=== PATIENT | male | born 1990 | race Caucasian/White ===

== ENCOUNTER 2019-08-18 10:52 | Emergency (ER) | payer BC, SELFPAY ==
[2019-08-18 11:06] VITALS: BP 134/79; PULSE 92; RESP 18; TEMP 37.4; O2SAT 99
--- NOTE | 2019-08-18 11:26 | ED.MALEGU ---
HPI - Male Genitourinary General Chief complaint: Urogenital-Male Stated complaint: STD testing Time Seen by Provider: 08/18/19 11:18 Source: patient and RN notes reviewed Mode of arrival: ambulatory Limitations: no limitations History of Present Illness HPI Narrative: Patient presents today complaining of one episode of urethral discharge this morning. Reported was cloudy with a green tint. Denies dysuria, hematuria, abdominal pain, scrotal or testicular pain or swelling. Reports he did have unprotected intercourse approximately 1 week ago. Complaint: penile discharge Related Data Allergies Allergy/AdvReac Type Severity Reaction Status Date / Time No Known Allergies Allergy Verified 08/18/19 11:12 Review of Systems Review of Systems: Narrative: CONSTITUTIONAL: Denies body aches, fever, chills, or sweats. EYES: Denies visual changes, redness, or discharge. ENT: Denies rhinorrhea, congestion, sore throat, or otalgia. CARDIOVASCULAR: Denies chest pain, palpitations, or edema. RESPIRATORY: Denies cough or dyspnea. GASTROINTESTINAL: Denies abdominal pain, nausea, vomiting, or diarrhea. GENITOURINARY: Denies dysuria or hematuria.+ Penile discharge SKIN: Denies rash, itching, or wounds. MUSCULOSKELETAL: Denies back pain, joint pain, or myalgia. NEUROLOGIC: Denies headache, numbness, tingling, or weakness. PSYCH: Denies depression or anxiety. PMFSH Comments At time of signature, I have reviewed and agree with nursing past medical, surgical, social and family history unless otherwise noted. Please see nursing chart for further information. There is no relevant family history pertinent to the presenting complaint Exam Narrative: Exam Narrative: GENERAL: Well-appearing, well-nourished, and in no acute distress. HEAD: Normocephalic, atraumatic. EYES: EOMI. No redness or drainage. Conjunctivae normal. ENT: Mucous membranes pink and moist. NECK: Normal AROM. CHEST: No respiratory distress. EXTREMITIES: Normal range of motion. No edema. SKIN: Warm, dry, no rash. NEURO: No focal deficits. Alert and oriented x3. Gait steady. PSYCH: Normal affect. No signs of depression or anxiety. Course Vital Signs Vital signs: Vital Signs Temperature 99.3 F 08/18/19 11:06 Pulse Rate 92 08/18/19 11:06 Respiratory Rate 18 08/18/19 11:06 Blood Pressure 134/79 08/18/19 11:06 Pulse Oximetry 99 08/18/19 11:06 Temperature 99.3 F 08/18/19 11:06 Pulse Rate 92 08/18/19 11:06 Respiratory Rate 18 08/18/19 11:06 Blood Pressure 134/79 08/18/19 11:06 Pulse Oximetry 99 08/18/19 11:06 Reviewed. Pt has been instructed to follow up with his PCP regarding his elevated blood pressure today. MDM - Male Genitourinary Differential Diagnosis Differential diagnosis: Likely urinary tract infection and other (Gonorrhea, chlamydia, trichomonas) Lab Data Attestation: I reviewed the patient's lab results. Labs: Urine Glucose Negative Reference Range: Negative Urine Bilirubin Negative Reference Range: Negative Urine Ketone Negative Reference Range: Negative Urine Specific [place] 1.020 Reference Range:1.001-1.035 Urine Blood Negative Reference Range: Negative * * Urine pH 7.5 Reference Range: 5.0-9.0 Urine Protein Negative Reference Range: Negative Urine Urobilinogen 0.2 Reference Range: 0.2-1.0 Urine Nitrate Negative Reference Range: Negative Urine Leukocyte Negative Reference Range: Negative Urine Color Yellow Reference Range: Yellow Urine Characteristics Clear Critical Care Time Critical Care Time Critical Care Time: No Discharge Plan Discharge C
[2019-08-18] MEDS: AZITHROMYCIN 250 MG TABLET 1000 MG PO (11:53)
[2019-08-18] MEDS: cefTRIAXone 250 MG VIAL IM (11:53)
[2019-08-18] MEDS: LIDOCAINE HCL 1% LOCAL INJ 20 ML VIAL IM (11:54)
== END 2019-08-18 12:08 | disposition home or self-care (01) ==
PROVIDERS: Emergency Provider Nurse Practitioner
DX: R36.9 Urethral discharge, unspecified (principal)
CPT/HCPCS: 81003; 87491; 87591; 87661; 96372; 99203; A9270; G0463; J0696

== ENCOUNTER 2019-12-22 14:40 | Emergency (ER) | payer BC, SELFPAY ==
[2019-12-22 15:00] VITALS: BP 119/83; PULSE 99; RESP 16; TEMP 36.6; O2SAT 100
--- NOTE | 2019-12-22 15:35 | ED.GENADULT ---
HPI - General Adult General Chief complaint: Urogenital-Male Stated complaint: STD check Time Seen by Provider: 12/22/19 15:35 Source: patient and RN notes reviewed Mode of arrival: ambulatory Limitations: no limitations History of Present Illness HPI narrative: 29-year-old male presents with urinary complaints and possible STD for the past 3 weeks. Dysuria consist of intermittent burning, and urgency, mainly in the am. No treatment. Ramo says he was treated for Chlamydia in July 2019 and is concerned if he is still infected. Says he received treatment. Denies fever or chills. Denies nausea, vomiting, and abdominal pain. No significant penile pain. No penile discharge. Concern for STDs due to history of unprotected intercourse. Denies further unprotected intercourse since July after treatment. Has a new sexually partner. Denies multiple partners. No flank pain. Exacerbating factors urinating. Denies hematuria or unusual penile bleeding. Tolerating liquids well. Remains active. The patient reports he have not been diagnosed with COVID-19. The patient reports he is not waiting for the results of a COVID-19 lab test. The patient reports he do not have fever, chills, weakness, or fatigue. The patient reports he do not have a new or worsening cough or shortness of breath. Denies chest pain. The patient reports he do not have any rhinorrhea, congestion, sore throat, and diarrhea. Denies recent traveling. Denies concerns for COVID-19 or exposures been home since [id number] order except for essential household needs, working, and return home. At this time, patient is not suspected of having COVID-19. Some parts of this dictation were generated by voice recognition software and may contain typographical and/or grammatical inaccuracies. Related Data Home Medications Medication Instructions Recorded Confirmed No Home Medications 12/22/19 12/22/19 Allergies Allergy/AdvReac Type Severity Reaction Status Date / Time No Known Allergies Allergy Verified 12/22/19 15:10 Review of Systems Review of Systems: Narrative: CONSTITUTIONAL: Denies fever, chills, sweats. EYES: Denies visual changes, redness, discharge. ENT: Denies rhinorrhea, congestion, sore throat, otalgia. CARDIOVASCULAR: Denies chest pain, palpitations, edema. RESPIRATORY: Denies dyspnea, wheezing, cough. GASTROINTESTINAL: Denies abdominal pain, nausea, vomiting, diarrhea. GENITOURINARY: Denies genital discharge and itching, hematuria. Complains of dysuria (consist of intermittent burning, and urgency) and possible STD. SKIN: Denies rash or itching. MUSCULOSKELETAL: Denies acute back pain, joint pain, or myalgia. NEUROLOGIC: Denies numbness or focal weakness. PSYCHIATRIC: Denies anxiety or depression. All systems reviewed & are unremarkable except as noted in HPI and below. [facility] Past Medical History Medical History (Updated 12/23/19 @ 00:00 by Aziza Gallegos) STD (male) Surgical History Surgical History (Updated 12/22/19 @ 15:44 by YARELI Ascencio) History of dental surgery Family History Family History (Updated 12/22/19 @ 15:45 by YARELI Ascencio) Father Alive and well Mother Alive and well Social History Social History (Updated 12/22/19 @ 15:46 by YARELI Ascencio) Smoking status: Never smoker Second hand tobacco smoke exposure: No Alcohol intake: current Substance use: never Occupation/Education: occupation Gender identity (if verbalized by the patient): Male Comments At time of signature, agree with nurse past medical, surgical, social, and family history. There is relevant patient's past medical history pertinent to the presenting complaint, no relevant family history pertinent to the presenting complaint. Exam Narrative: Exam Narrative: GENERAL: This is a well-nourished, well-developed patient, in no apparent distress. Talks in full sentences and ambulates with steady gait
== END 2019-12-22 15:58 | disposition home or self-care (01) ==
PROVIDERS: Emergency Provider Nurse Practitioner Family
DX: R30.0 Dysuria (principal)
CPT/HCPCS: 81003; 87491; 87591; 87661; 99213; G0463

== ENCOUNTER 2022-02-19 16:14 | Emergency (ER) | payer OTHER, SELFPAY ==
[2022-02-19 16:23] VITALS: BP 126/81; PULSE 85; RESP 18; TEMP 36.8; O2SAT 99
--- NOTE | 2022-02-19 16:39 | ECG_ITS ---
Measurements Intervals [place] Rate: 79 P: 60 [place]: 157 QRS: 23 QRSD: 94 T: 56 QT: 342 QTc: 392 Interpretive Statements SINUS RHYTHM NORMAL ECG NO PREVIOUS ECG AVAILABLE FOR COMPARISON Electronically Signed On 02-19-2022 20:37:43 CDT by Mauricio Gooed D.O.
--- NOTE | 2022-02-19 17:01 | ED.GENADULT ---
HPI - General Adult General Chief complaint: Extremity Problem,Nontraumatic Stated complaint: Lt Chest and Arm Pain Time Seen by Provider: 02/19/22 17:02 Source: patient and RN notes reviewed Mode of arrival: ambulatory Limitations: no limitations History of Present Illness HPI narrative: 31-year-old male presents to the [facility] with intermittent left chest wall discomfort, left arm discomfort for at least 1 week. Reports that he has been under a lot more stress and having more anxiety lately. Has an appointment in March with his PCP. States that chest discomfort only lasts for several seconds and goes away. Denies any nausea or vomiting. Denies any excessive sweating or shortness of breath. Has full range of motion of the shoulder. Denies any neck or back pain. Related Data Home Medications Medication Instructions Recorded Confirmed No Home Medications 12/22/19 02/19/22 Allergies Allergy/AdvReac Type Severity Reaction Status Date / Time No Known Allergies Allergy Verified 02/19/22 16:26 Review of Systems Review of Systems: All systems reviewed & are unremarkable except as noted in HPI and below Constitutional: Constitutional: Reports no additional constitutional complaints, Denies chills and Denies fever(s) Eyes: Eyes: Reports no additional eye complaints ENT: Reports system reviewed and no additional complaints, except as documented Cardiovascular: Cardiovascular: Reports as per HPI Respiratory: Respiratory: Reports no additional respiratory complaints Gastrointestinal: Gastrointestinal: Reports no additional gastrointestinal complaints Musculoskeletal: Musculoskeletal: Reports as per HPI Integumentary/Breasts: Skin/Breast: Reports system reviewed and no additional complaints, except as docu Neurologic: Reports system reviewed and no additional complaints, except as documented Psychiatric: Psychiatric: Reports no additional psychiatric complaints Allergic/Immunologic: Allergic/Immunologic: Reports no additional allergic/immunologic complaints [facility] Past Medical History Medical History STD (male) Surgical History Surgical History History of dental surgery Family History Family History Father Alive and well Mother Alive and well Social History Social History Smoking status: Never smoker Second hand tobacco smoke exposure: No Alcohol intake: current Substance use: never Gender identity (if verbalized by the patient): Male Comments At the time of my signature, I reviewed and agree with the nursing past medical, surgical, social, and family history. There is no relevant family history pertinent to the patient complaint. Exam Const: General: healthy appearing, no acute distress and alert Nutritional Appearance: well nourished Orientation/consciousness: patient oriented x3 Limitations: no limitations HENMT: Head: normal to inspection Ears: external ears normal, TM's normal bilaterally and EAC's normal General nose exam: Normal external nose present Mouth: Yes Normal oral and palatal mucosa present, Yes lip normal and Yes moist mucous membranes Throat: posterior oropharynx normal Eyes: General: appearance normal, both eyes and all related structures Conjunctivae: conjunctivae normal Pupils: Equal, round and reactive pupils present Neck: Neck: normal visual inspection, no lymphadenopathy and no meningeal signs Chest: Chest palpation & inspection: normal inspection of the chest Resp: Effort & Inspection: normal respiratory effort and no use of accessory muscles Auscultation: clear to auscultation bilaterally, no crackles, no rales, no rhonchi and no wheezes Cardio: Rate: regular rate Rhythm: regular rhythm Back/Spine/Pelvis: Cervical Spine: norm
== END 2022-02-19 17:13 | disposition home or self-care (01) ==
PROVIDERS: Emergency Provider Nurse Practitioner
DX: R07.89 Other chest pain (principal)
CPT/HCPCS: 93005; 99213; G0463

== ENCOUNTER 2022-02-20 10:46 | Emergency (ER) | payer OTHER, SELFPAY ==
--- NOTE | ~2022-02-20 | XR_ITS ---
XR chest 2V DATE: 02/20/2022 13:43 INDICATION: Chest pressure, left arm tingling cyst. TECHNIQUE: 2 views COMPARISON: None FINDINGS: Normal heart size. No hilar or mediastinal enlargement. No pulmonary infiltrate or consolid ation, pleural effusion or pulmonary vascular congestion or pneumothorax. Included skeletal structure s are unremarkable. IMPRESSION: Negative Reviewed, dictated and finalized at location B. IMPRESSION: Negative
[2022-02-20 10:53] VITALS: BP 133/87; PULSE 97; RESP 16; TEMP 36.6; O2SAT 100
--- NOTE | 2022-02-20 11:31 | ECG_ITS ---
Measurements Intervals [place] Rate: 66 P: 59 [place]: 169 QRS: 48 QRSD: 98 T: 48 QT: 356 QTc: 373 Interpretive Statements SINUS RHYTHM BASELINE ARTIFACT- I, III, AVR NORMAL ECG COMPARED TO ECG 02/19/2022 16:34:24 NO SIGNIFICANT CHANGES Electronically Signed On 02-20-2022 11:56:54 CDT by Mauricio Goode D.O.
[2022-02-20 12:10] LABS: Basophils Percent Auto 0.7 % (0.2-1.2); Eosinophils Absolute Auto 0.2 K/mm3 (0-0.3); Eosinophils Percent Auto 2.7 % (0-4.4); Hematocrit 48.3 % (42.0-52.0); Hemoglobin 16.4 g/dL (14.0-18.0); Immature Granulocyte Absolute 0.01 K/mm3 (0.00-0.031); Immature Granulocyte Percent A 0.2 % (0-0.5); Lymphocytes Absolute Auto 1.39 K/mm3 (0.9-3.2); Lymphocytes Percent Auto 23.8 % (18.3-44.2); Mean Corpuscular Hemoglobin 30.7 pg (26-34); Mean Corpuscular Volume 90.4 fl (80-100); Mean Platelet Volume 9.6 fl (7.4-10.4); Monocytes Absolute Auto 0.5 K/mm3 (0.1-0.6); Monocytes Percent Auto 8.4 % (2.6-8.5); Neutrophils Absolute Auto 3.8 K/mm3 (1.3-6.7); Neutrophils Percent Auto 64.2 % (45.5-73.1); Platelet Count Result 342 k/mm3 (150-375); Red Blood Count 5.34 M/mm3 (4.6-6.20); Red Cell Distribution Width 12.2 % (11.5-14.5); White Blood Count 5.8 K/mm3 (4.5-10.0)
[2022-02-20 12:23] LABS: Alanine Aminotransferase 33 U/L (6-50); Albumin Level 5.2 g/dL (3.5-5.1); Alkaline Phosphatase 68 U/L (38-126); Anion Gap 17 mmol/L (8-16); Aspartate Amino Transferase 34 U/L (17-59); Bilirubin,Total 0.6 mg/dL (0.2-1.3); Blood Urea Nitrogen 10 mg/dL (9-20); Calcium 9.6 mg/dL (8.4-10.2); Carbon Dioxide 27 mmol/L (22-30); Chloride 98 mmol/L (98-107); Estimated CRCL calculation 110 ml/min; Estimated Glomerular Filt Rate > 60; Glucose 95 mg/dL (65-110); Potassium 4.1 mmol/L (3.4-5.0); Sodium 142 mmol/L (137-145)
[2022-02-20 12:24] LABS: D Dimer < 0.27 ug/mL (<0.48)
[2022-02-20 12:34] LABS: Troponin I < 0.012 ng/mL (0.000-0.034)
[2022-02-20 13:59] VITALS: BP 112/80; PULSE 101; RESP 20; O2SAT 98
--- NOTE | 2022-02-20 14:09 | ED.GENADULT ---
HPI - General Adult General Chief complaint: Extremity Problem,Nontraumatic Stated complaint: tingling and pain in left arm Time Seen by Provider: 02/20/22 10:57 History of Present Illness HPI narrative: 31-year-old male presenting to the emergency department for evaluation of intermittent chest wall pain and intermittent pain to his armpits or left arm. Patient states the symptoms have been occurring almost daily over the last week. Patient denies any falls or injuries. Patient states he has no pain or complaints at this time. Patient denies any associated shortness of breath. Patient denies any coughs colds or fevers. Related Data Home Medications Medication Instructions Recorded Confirmed No Home Medications 12/22/19 02/19/22 Allergies Allergy/AdvReac Type Severity Reaction Status Date / Time No Known Allergies Allergy Verified 02/20/22 10:56 Review of Systems Review of Systems: CONSTITUTIONAL: Denies fever, chills, or sweats. EYES: Denies visual changes, redness, or discharge. ENT: Denies rhinorrhea, congestion, sore throat, or otalgia. CARDIOVASCULAR: See HPI RESPIRATORY: Denies cough or dyspnea. GASTROINTESTINAL: Denies abdominal pain, nausea, vomiting, or diarrhea. GENITOURINARY: Denies dysuria or hematuria. SKIN: Denies rash or itching. MUSCULOSKELETAL: See HPI NEUROLOGIC: Denies headache, numbness, or weakness. PMFSH Past Medical History Medical History STD (male) Surgical History Surgical History History of dental surgery Family History Family History Father Alive and well Mother Alive and well Social History Social History Smoking status: Never smoker Second hand tobacco smoke exposure: No Alcohol intake: current Substance use: never Gender identity (if verbalized by the patient): Male Exam Narrative: APPEARANCE: Well appearing, no pain, no distress, well-nourished. HEAD: normocephalic, atraumatic. EYES: PERRLA/EOMI, conjunctivae clear. NOSE: Normal no drainage NECK: Supple. No adenopathy, no masses. RESPIRATORY: Airway patent, respirations nonlabored. Clear to auscultation bilaterally, no rales, rhonchi, wheezing. CARDIOVASCULAR: Regular rate and rhythm without murmurs rubs or gallops. ABDOMINAL: Soft, nontender, nondistended, normal bowel sounds MUSCULOSKELETAL: Moves all extremities. Strength/ROM intact, No edema, No calf tenderness. NEURO: Alert. Cranial nerves II through XII intact. Grossly intact SKIN: Warm, dry. Normal Color Course Course Emergency Course: Patient denies complaints at this time. Patient is afebrile with no leukocytosis. Hemoglobin is 16.4. Patient's D-dimer was not elevated. Patient's electrolytes are within normal limits. EKG showed normal sinus rhythm. Patient's troponin was within normal limits. Was updated on the results of his work-up. All questions concerns were addressed. Vital Signs Vital signs: Vital Signs Temperature 97.9 F 02/20/22 10:53 Pulse Rate 97 02/20/22 10:53 Respiratory Rate 16 02/20/22 10:53 Blood Pressure 133/87 02/20/22 10:53 Pulse Oximetry 100 02/20/22 10:53 Oxygen Delivery Room Air 02/20/22 10:53 Temperature 97.9 F 02/20/22 10:53 Pulse Rate 101 H 02/20/22 13:59 Respiratory Rate 20 02/20/22 13:59 Blood Pressure 112/80 02/20/22 13:59 Pulse Oximetry 98 02/20/22 13:59 Oxygen Delivery Room Air 02/20/22 10:53 Medical Decision Making Vital Signs Vital Signs: Vital Signs Temperature 97.9 F 02/20/22 10:53 Pulse Rate 97 02/20/22 10:53 Respiratory Rate 16 02/20/22 10:53 Blood Pressure 133/87 02/20/22 10:53 Pulse Oximetry 100 02/20/22 10:53 Oxygen Delivery Room Air 02/20/22 10:53 Temperature 97.9 F 02/20/22 10:53 Pulse Rat
== END 2022-02-20 14:39 | disposition home or self-care (01) ==
PROVIDERS: Emergency Provider Emergency Medicine
DX: R07.89 Other chest pain (principal)
CPT/HCPCS: 36415; 71046; 80053; 84484; 85025; 85380; 93005; 99284

== ENCOUNTER 2023-01-16 15:03 | Emergency (ER) | payer OTHER, SELFPAY ==
[2023-01-16 15:06] VITALS: BP 132/77; PULSE 70; RESP 18; TEMP 36.4; O2SAT 100
--- NOTE | 2023-01-16 17:09 | PC.NURSE ---
pt approached intake desk and states he is leaving. pt ambulated out of ED with steady gate.
== END 2023-01-16 17:09 | disposition left against medical advice (07) ==
LOC: ANHED 17:13
DX: R22.0 Localized swelling, mass and lump, head (principal)
CPT/HCPCS: 99199

== ENCOUNTER 2023-01-17 08:35 | Emergency (ER) | payer OTHER, SELFPAY ==
[2023-01-17 08:41] VITALS: BP 122/75; PULSE 95; RESP 16; TEMP 36.5; O2SAT 100
--- NOTE | 2023-01-17 09:35 | ED.DENTAL ---
HPI - Dental/Oral General Chief complaint: Dental/Oral <CHRISTIE Hernandez Last Filed: 01/17/23 18:36> Stated complaint: l lump on jaw <CHRISTIE Hernandez Last Filed: 01/17/23 18:36> Time Seen by Provider: 01/17/23 09:27 <CHRISTIE Hernandez Last Filed: 01/17/23 18:36> History of Present Illness HPI Narrative: 32-year-old male reports for evaluation for a lump to his left mandible x3 days. Patient states he spontaneously noticed the lump, it is not tender. He denies fever, night sweats, sore throat, ear pain, dental pain, trismus, difficulty breathing or swallowing. States he try to get in with to his PCP but was not able to schedule appointment until February therefore came to the ED. <CHRISTIE Hernandez Last Filed: 01/17/23 18:36> Related Data Home medications: Home Medications Medication Instructions Recorded Confirmed No Home Medications 12/22/19 02/19/22 <CHRISTIE Hernandez Last Filed: 01/17/23 18:36> Allergies/adverse reactions: Allergies Allergy/AdvReac Type Severity Reaction Status Date / Time No Known Allergies Allergy Verified 02/20/22 10:56 <CHRISTIE Hernandez Last Filed: 01/17/23 18:36> Review of Systems Review of Systems: CONSTITUTIONAL: Denies fever, chills EYES: Denies visual changes, redness, or discharge. ENT: See HPI CARDIOVASCULAR: Denies chest pain, palpitations, or edema. RESPIRATORY: Denies cough or dyspnea. GASTROINTESTINAL: Denies abdominal pain, nausea, vomiting, or diarrhea. GENITOURINARY: Denies dysuria or hematuria. SKIN: Denies rash or itching. MUSCULOSKELETAL: Denies back pain, joint pain, or myalgia. NEUROLOGIC: Denies headache, numbness, dizziness, or weakness. PSYCHIATRIC: Denies anxiety or depression. <CHRISTIE Hernandez Last Filed: 01/17/23 18:36> [facility] Past Medical History Medical History: Medical History STD (male) <Lillian Roman PA-C - Last Filed: 01/17/23 18:36> Surgical History Surgical History: Surgical History History of dental surgery <Lillian Roman PA-C - Last Filed: 01/17/23 18:36> Family History Family History: Family History Father Alive and well Mother Alive and well <Lillian Roman PA-C - Last Filed: 01/17/23 18:36> Social History Social History: Social History Smoking status: Never smoker Second hand tobacco smoke exposure: No Alcohol intake: current Substance use: never Occupation/Education: occupation Gender identity (if verbalized by the patient): Male <Lillian Roman PA-C - Last Filed: 01/17/23 18:36> Exam Narrative: GENERAL: Well-appearing, in no acute distress. HEAD: Normocephalic EYES: PERRLA ENT: Nares clear. Mucous membranes moist. Oropharynx without tonsillar hypertrophy exudate or other lesions. Bilateral TMs are mayers nonbulging. Normal dentition, no caries. No periapical abscess, areas of fluctuation or induration, tenderness to the gingiva. Floor of mouth is soft without crepitus. No submandibular swelling. There is less than 1 cm mobile rubbery like mass to the left mandible without tenderness or overlying skin changes. No trismus. NECK: Supple. CHEST: No respiratory distress. Clear to auscultation, no adventitious breath sounds. HEART: Regular rate and rhythm. No murmur heard. Normal peripheral pulses. EXTREMITIES: Normal range of motion. No edema. SKIN: Warm, dry, no rash. NEURO: No focal deficits. Alert and oriented x3. PSYCH: Normal mood and affect. 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
== END 2023-01-17 10:00 | disposition home or self-care (01) ==
LOC: ANHED 09:54
PROVIDERS: Emergency Provider Physician Assistant
DX: R59.1 Generalized enlarged lymph nodes (principal)
CPT/HCPCS: 99281; A4565